=== PATIENT | male | born 2000 | race Caucasian/White ===

== ENCOUNTER 2018-03-02 00:46 | Emergency (ER) | payer BC ==
[~2018-03-02] VITALS: Ht 188 cm; Wt 109.1 kg
[2018-03-02 00:58] VITALS: TEMP 96.6
[2018-03-02 03:00] LABS: ALBUMIN 4.5 gm/dL (3.5-5.0); BILIRUBIN,TOTAL 0.4 mg/dL (0.0-1.0); CALCIUM 9.4 mg/dL (8.4-10.2); CREATININE, serum 0.89 mg/dL (0.66-1.25); MAGNESIUM 2.2 mg/dL (1.6-2.3); PHOSPHOROUS 4.5 mg/dL (2.5-4.5); POTASSIUM 3.3 mmol/L (3.4-5.0); TOTAL PROTEIN 7.4 gm/dL (6.4-8.2)
[2018-03-02] MEDS ORDERED: AMOXICILLIN 50500 MG PO (04:07)
[2018-03-02] MEDS ORDERED: NORCO 325 MG-51 TAB PO (04:07)
[2018-03-02 04:21] VITALS: BP 118/74; PULSE 75
== END 2018-03-02 04:21 | disposition home or self-care (01) ==
LOC: COL.ER 00:46
PROVIDERS: Emergency Medicine
DX: S09.90XA Unspecified injury of head, initial encounter (principal); S02.2XXA Fracture of nasal bones, initial encounter for closed fracture; S01.511A Laceration without foreign body of lip, initial encounter; F10.129 Alcohol abuse with intoxication, unspecified; W10.9XXA Fall (on) (from) unspecified stairs and steps, initial encounter; Y92.009 Unspecified place in unspecified non-institutional (private) residence as the place of occurrence of the external cause; Y90.6 Blood alcohol level of 120-199 mg/100 ml
CPT/HCPCS: J2405; J7030